=== PATIENT | female | born 1990 | race Caucasian/White ===

== ENCOUNTER 2016-09-14 14:43 | Outpatient (CLI) | payer BC | END 2016-09-14 14:44 | disposition home or self-care (01) | DX: M25.632 Stiffness of left wrist, not elsewhere classified (principal); M25.532 Pain in left wrist; M79.89 Other specified soft tissue disorders; R93.7 Abnormal findings on diagnostic imaging of other parts of musculoskeletal system ==

== ENCOUNTER 2016-09-30 12:45 | Outpatient (CLI) | payer BC | END 2016-09-30 12:46 | disposition home or self-care (01) | DX: M65.832 Other synovitis and tenosynovitis, left forearm (principal); M67.834 Other specified disorders of tendon, left wrist ==

== ENCOUNTER 2020-08-21 04:11 | Outpatient (CLI) | payer BC | END 2020-08-21 04:12 | disposition critical access hospital (66) | LOC: EMS 04:11 | PROVIDERS: ATTEND Surgery | DX: R42 Dizziness and giddiness (principal) | CPT/HCPCS: A0425; A0429 ==

== ENCOUNTER 2020-08-21 04:27 | Emergency (ER) | payer BC ==
--- NOTE | 2020-08-21 04:27 | ED Physician Documentation ---
History of Present Illness - Stated complaint Stated Complaint: DIARRHEA, DIZZY, FAINT - History obtained from History obtained from: Patient, EMS - History of Present Illness Timing: Enter time (03:00), Today Pain level max: 0 Pain level now: 0 Improved by: rest Worsened by: standing - Additonal information Additional information: BIBA. patient took bowel prep at 4 PM yesterday (approximately 12 hours COTTON WEIGHER) and had subsequent diarrhea c/w expected effect of the bowel prep. She says she has had one of the two bottles of the bowel prep and is scheduled for colonoscopy at 11 AM at [facility] and was to drink the other bottle later this morning. She says she went to bed last night feeling well except for the diarrhea, but woke at approximately 3 AM feeling lightheaded/dizzy with worsening of these symptoms when she tried to stand. EMS administered 500cc IV NS but patient continued to be symptomatic at rest and worse with standing. EMS notes that patient's heart rate was in the 70s when lying down, 110s with sitting, 120s with standing. Patient has had a total of 700cc IV NS COTTON WEIGHER. patient says she was to have the colonoscopy to investigate episodic diarrhea with abdominal cramping. Review of Systems Constitutional: denies: Fever, Chills, Sweats Cardiac: reports: Reviewed and negative Respiratory: reports: Reviewed and negative GI: reports: Diarrhea. denies: Abdominal Pain, Nausea, Vomiting, Bloody / black stool : denies: Dysuria, Frequency, Now E[facility] PD PAST MEDICAL HISTORY - Past Medical History Past Medical History: No - Past Surgical History Past Surgical History: No - Present Medications Home Medications: Ambulatory Orders Medication Instructions Recorded Confirmed No Known Home Medications 08/21/20 08/21/20 - Allergies Allergies/Adverse Reactions: Allergies Allergy/AdvReac Type Severity Reaction Status Date / Time No Known Drug Allergies Allergy Verified 08/21/20 04:40 - Living Situation Living Arrangement: reports: At home PD ED PE NORMAL - Vitals Vital signs reviewed: Yes - General General: Alert and oriented X 3, No acute distress, Well developed/nourished - HEENT HEENT: Moist mucous membranes - Neck Neck: Supple, no meningeal sign - Cardiac Cardiac: RRR, No murmur - Respiratory Respiratory: No respiratory distress, Clear bilaterally - Abdomen Abdomen: Normal bowel sounds, Soft, Non tender, Non distended Results - Vitals Vitals: Vital Signs - 24 hr 08/21/20 08/21/20 04:30 05:00 Temperature 36.6 C Heart Rate 77 75 Respiratory 18 16 Rate Blood Pressure 123/71 120/107 H O2 Saturation 100 100 Oxygen O2 Source Room air - Labs Labs: Laboratory Tests 08/21/20 08/21/20 04:44 04:44 WBC 8.7 RBC 4.30 Hgb 13.4 Hct 39.9 MCV 92.8 MCH 31.2 H MCHC 33.6 RDW 11.7 L Plt Count 222 MPV 9.4 Neut # (Auto) 5.0 Lymph # (Auto) 2.8 [place] # (Auto) 0.7 Eos # (Auto) 0.2 Baso # (Auto) 0.0 Absolute Nucleated RBC 0.00 Nucleated RBC % 0.0 Sodium 137 Potassium 3.4 L Chloride 105 Carbon Dioxide 24 Anion Gap 8.0 BUN 8 Creatinine 0.7 Estimated GFR (MDRD) 97 Glucose 120 H Calcium 8.6 Total Bilirubin 0.4 AST 16 ALT 12 Alkaline Phosphatase 61 Total Protein 6.8 Albumin 4.1 Globulin 2.7 Albumin/Globulin Ratio 1.5 Lipase 23 PD MEDICAL DECISION MAKING - ED course Complexity details: reviewed results, re-evaluated patient, considered differential, d/w patient ED course: unremarkable blood test results. She is given 1 liter NS in ED (total of 1700cc when combined with the 700cc given by EMS en route). After infusion of the 1 liter NS in ED, she reports feeling much improved and is able to stand and am bulate with minimal lightheadedness. She is comfortable with d/c home. I advised her to contact her GI doctor's office for further instruction regarding rescheduling the colonoscopy and I advised her to not finish the bowel prep Departure - Departure Disposition: Home, Self Care Clinical Impression: Diarrhea, Dehydration Condition: Good Instructions: ED Dehydration Follow-Up: ANTONIA VAZQUEZ ARNP [Primary Care Provider] -
[2020-08-21] MEDS ORDERED: SODIUM CHLORIDE 0.9% 1,000 ML IV STA (04:38)
[2020-08-21 05:12] LABS: BASOPHILS % (AUTO) 0.3 %; EOSINOPHILS # (AUTO) 0.2 10^3/uL (0.0-0.7); EOSINOPHILS % (AUTO) 1.7 %; HGB - HEMOGLOBIN 13.4 g/dL (12.0-16.0); LYMPHOCYTES # (AUTO) 2.8 10^3/uL (1.5-3.5); LYMPHOCYTES % (AUTO) 32.5 %; MEAN CORPUSCULAR HEMOGLOBIN 31.2 pg (27.0-31.0); MEAN CORPUSCULAR HGB CONC 33.6 g/dL (32.0-36.0); MEAN CORPUSCULAR VOLUME 92.8 fL (81.0-99.0); MEAN PLATELET VOLUME 9.4 fL (7.9-10.8); MONOCYTES # (AUTO) 0.7 10^3/uL (0.0-1.0); MONOCYTES % (AUTO) 7.5 %; NEUTROPHILS % (AUTO) 57.7 %; PLT - PLATELET COUNT 222 10^3/uL (130-450); RED CELL DISTRIBUTION WIDTH 11.7 % (12.0-15.0); WHITE BLOOD COUNT 8.7 x10^3/uL (4.8-10.8)
[2020-08-21 05:24] LABS: ALBUMIN 4.1 g/dL (3.2-5.5); ALBUMIN/GLOBULIN RATIO 1.5 (1.0-2.2); BILIRUBIN,TOTAL 0.4 mg/dL (0.2-1.0); CALCIUM 8.6 mg/dL (8.5-10.3); CREATININE 0.7 mg/dL (0.4-1.0); TOTAL PROTEIN 6.8 g/dL (6.7-8.2)
[2020-08-21 06:04] VITALS: BP 122/87
== END 2020-08-21 06:02 | disposition home or self-care (01) ==
LOC: EDUNIT# → ED 04:27
DX: R19.7 Diarrhea, unspecified (principal); E86.0 Dehydration
CPT/HCPCS: 36415; 80053; 83690; 85025; 96360; 99284

== ENCOUNTER 2020-11-07 07:00 | Outpatient (CLI) | payer BC ==
[2020-11-08 00:27] LABS: BACTERIAL VAGINOSIS DNA NEGATIVE (NEGATIVE); CANDIDA GLABRATA DNA NEGATIVE (NEGATIVE); CANDIDA GROUP DNA NEGATIVE (NEGATIVE); CANDIDA KRUSEI DNA NEGATIVE (NEGATIVE); TRICHOMONAS VAGINALIS DNA NEGATIVE (NEGATIVE)
== END 2020-11-07 23:59 | disposition home or self-care (01) ==
LOC: LAB 07:00
PROVIDERS: ATTEND Family Medicine
DX: N39.0 Urinary tract infection, site not specified (principal); N89.8 Other specified noninflammatory disorders of vagina
CPT/HCPCS: 87086; 87181; 87661; 87801

== ENCOUNTER 2020-11-09 01:53 | Emergency (ER) | payer BC ==
--- NOTE | 2020-11-09 02:03 | ED Physician Documentation ---
PD HPI FOCAL NEURO - Stated complaint Stated Complaint: NUMB L FACE, DIZZINESS, WEAKNESS - Chief complaint Chief Complaint: Neuro - History obtained from History obtained from: Patient - History of Present Illness Timing - onset: How many hours ago (1), Today Timing - details: Abrupt onset (She was seen for bladder infection 2 days ago and started on Bactrim with the urine culture still pending. She was feeling some nausea yesterday and then awoke from sleep tonight with feeling of lightheadedness, clammy, low temperature, nausea and general weakness. She noted some numbness on face.) Severity of deficit: Moderate Weakness: No: Face, Arm, Leg Numbness: Face (left side, associated with some headache.) Associated symptoms: Headache, Nausea / vomiting (earlier today and more when awoke this evening.) Baseline status: positive: A&OX3, ambulatory, indep Similar symptoms before: Diagnosis (had similar weakness and nausea once prior when prepping for colonoscopy and was dehdrated.) Recently seen: Clinic (Urgent Care for UTI symptoms and Rx Bactrim 2 days ago.) Review of Systems Constitutional: denies: Fever (noted her temp to be low at 94 by home ther mometer.) Eyes: reports: Decreased vision (left eye and has had some scotomata with headache over the past few weeks intermittently.), Photophobia Nose: denies: Rhinorrhea / runny nose, Congestion, Sinus pressure / pain Throat: denies: Sore throat Cardiac: denies: Palpitations Respiratory: denies: Dyspnea GI: reports: Nausea, Vomiting. denies: Abdominal Pain, Diarrhea Neurologic: reports: Generalized weakness, Numbness (noted some tingling left side of face; no symptoms in arms nor legs. No facial weakness, trouble speaking, nor confusion.), Headache (gets left sided headaches intermittently. Occasional when younger (onset late teens and into twenties). Has had then about 3-4 times monthly for half year or more, and more frequent (every few days) the past several weeks. Has seen PMD without any Rx given. Referring to ENT. Pt told to use Ibuprofen). denies: Focal weakness, Near syncope Endocrine: denies: Weight loss Immunocompromised: denies: Immunocompromised PD PAST MEDICAL HISTORY - Past Medical History Cardiovascular: None Respiratory: None Neuro: Migraines Endocrine/Autoimmune: None GI: None HEENT: None - Past Surgical History Past Surgical History: No - Present Medications Home Medications: Ambulatory Orders Medication Instructions Recorded Confirmed Norethindrone 11/09/20 Ondansetron Odt [Zofran] 4 mg TL Q6H PRN #10 tablet 11/09/20 Sumatriptan Succinate [Imitrex] 50 mg PO Q4H PRN #6 tablet 11/09/20 - Allergies Allergies/Adverse Reactions: Allergies Allergy/AdvReac Type Severity Reaction Status Date / Time No Known Drug Allergies Allergy Verified 08/21/20 04:40 PD ED PE NORMAL - Vitals Vital signs reviewed: Yes - General General: Alert and oriented X 3, No acute distress, Well developed/nourished - HEENT HEENT: PERRL, EOMI (some light sensitive left eye.), Ears normal - Neck Neck: Supple, no meningeal sign, No adenopathy - Cardiac Cardiac: RRR, No murmur - Respiratory Respiratory: Clear bilaterally - Abdomen Abdomen: Soft, Non tender - Back Back: No CVA TTP - Derm Derm: Normal color, Warm and dry - Extremities Extremities: No tenderness to palpate, Normal ROM s pain - Neuro Neuro: Alert and oriented X 3, turn supervisor 2-12 intact, No motor deficit, No sensory deficit (normal sensation to touch on face), Normal speech Eye Opening: Spontaneous Motor: Obeys Commands Verbal: Oriented GCS Score: 15 Results - Vitals Vitals: Vital Signs - 24 hr 11/09/20 01:55 Temperature 36.4 C L Heart Rate 95 Respiratory 20 Rate Blood Pressure 115/94 H O2 Saturation 99 Oxygen O2 Source Room air - Labs Labs: Laboratory Tests 11/09/20 11/09/20 11/09/20 02:50 02:50 02:50 WBC 8.3 RBC 4.40 Hgb 13.8 Hct 40.9 MCV 93.0 MCH 31.4 H MCHC 33.7 RDW 11.8 L Plt Count 230 MPV 9.0 Neut # (Auto) 4.9 Lymph # (Auto) 2.5 [place] # (Auto) 0.6 Eos # (Auto) 0.2 Baso # (Auto) 0.0 Absolute Nucleated RBC 0.00 Nucleated RBC % 0.0 Sodium 136 Potassium 3.7 Chloride 103 Carbon Dioxide 24 Anion Gap 9.0 BUN 13 Creatinine 0.7 Estimated GFR (MDRD) 97 Glucose 112 H Lactic Acid 1.4 Calcium 8.9 Magnesium 2.0 Total Bilirubin 0.4 AST 14 ALT 13 Alkaline Phosphatase 60 C-Reactive Protein < 1.0 Total Protein 7.3 Albumin 4.3 Globulin 3.0 Albumin/Globulin Ratio 1.4 Lipase 25 PD MEDICAL DECISION MAKING - ED course Complexity details: reviewed old records (urine culture showing e.coli but sensitivities are not resulted yet. ), reviewed results (no signs of sepsis. Lytes good. Given the chronic recurrences of headache, I did not see indication for urgent imaging. ), re-evaluated patient (given IV fluids and meds targeting nausea/migraine and feeling improved. ), considered differential (having nausea/weakness/low temp/some headache. Could be side effect of recent abx started 2 days ago. Consider early sepsis. Also having some elements c/w migraine (visual sensitive, nausea, facial numbness). ), d/w patient Departure - Departure Disposition: 01 Home, Self Care Clinical Impression: Nausea, Lightheadedness, Frequent headaches, Medication side effect Condition: Stable Record reviewed to determine appropriate education?: Yes Instructions: ED Headache Migraine, ED Nausea Vomiting Follow-Up: ANTONIA VAZQUEZ ARNP [Primary Care Provider] - Prescriptions: Sumatriptan Succinate [Imitrex] 50 mg PO Q4H PRN #6 tablet PRN Reason: Migraine Ondansetron Odt [Zofran] 4 mg TL Q6H PRN #10 tablet PRN Reason: Nausea / Vomiting Comments: Your urine culture is showing E. coli which is a common bacteria for bladder infections. The sensitivities are not resulted yet and likely will be later today. Your blood tests are good with a normal white count and other tests markers for sepsis are negative. I do not think your symptoms are related to worsening infection. You may have experience seeing side effects to the Bactrim with regard to nausea and not feeling well. If so we could change to a different antibiotic but it would be good to wait for the sensitivity report on your culture to know the best next antibiotic to choose. Call the walk-in clinic or your primary care back this afternoon to see if the urine culture sensitivities are resulted so they could know which antibiotic to change you to if you are still having symptoms with your Bactrim. Use ondansetron if needed for nausea. Regarding your headaches you have been having, I would suggest trying ondansetron along with sumatriptan which is a migraine particular medicine when you get the migraine type headaches. See if this helps some go away promptly. If so your primary care can continue prescribing those. If they do not help that well, your primary care can try other approaches or even potentially daily preventive medications for the headaches. They do sound migraine-like. Continue with referrals to ENT as planned to evaluate that way.
[2020-11-09] MEDS ORDERED: SODIUM CHLORIDE 0.9% 1,000 ML IV STA (02:34)
[2020-11-09] MEDS ORDERED: KETOROLAC 30 MG/ML VIAL IVP STA (02:34)
[2020-11-09] MEDS ORDERED: diphenhydrAMINE INJ 50 MG/ML VIAL IVP STA (02:34)
[2020-11-09] MEDS ORDERED: PROCHLORPERAZINE 10 MG/2 ML VIAL IVP STA (02:34)
[2020-11-09 02:58] LABS: BASOPHILS % (AUTO) 0.5 %; EOSINOPHILS # (AUTO) 0.2 10^3/uL (0.0-0.7); EOSINOPHILS % (AUTO) 2.2 %; HCT - HEMATOCRIT 40.9 % (37.0-47.0); HGB - HEMOGLOBIN 13.8 g/dL (12.0-16.0); LYMPHOCYTES # (AUTO) 2.5 10^3/uL (1.5-3.5); LYMPHOCYTES % (AUTO) 30.5 %; MEAN CORPUSCULAR HEMOGLOBIN 31.4 pg (27.0-31.0); MEAN CORPUSCULAR HGB CONC 33.7 g/dL (32.0-36.0); MONOCYTES # (AUTO) 0.6 10^3/uL (0.0-1.0); MONOCYTES % (AUTO) 7.5 %; NEUTROPHILS # (AUTO) 4.9 10^3/uL (1.5-6.6); NEUTROPHILS % (AUTO) 58.9 %; PLT - PLATELET COUNT 230 10^3/uL (130-450); RED CELL DISTRIBUTION WIDTH 11.8 % (12.0-15.0); WHITE BLOOD COUNT 8.3 x10^3/uL (4.8-10.8)
[2020-11-09 03:17] LABS: ALBUMIN 4.3 g/dL (3.2-5.5); ALBUMIN/GLOBULIN RATIO 1.4 (1.0-2.2); ALKALINE PHOSPHATASE 60 IU/L (42-121); ALT ALANINE AMINOTRANSFERASE 13 IU/L (10-60); AST ASPARTATE AMINOTRANSFERASE 14 IU/L (10-42); BILIRUBIN,TOTAL 0.4 mg/dL (0.2-1.0); BUN - BLOOD UREA NITROGEN 13 mg/dL (6-20); CALCIUM 8.9 mg/dL (8.5-10.3); CARBON DIOXIDE - CO2 24 mmol/L (21-32); CHLORIDE 103 mmol/L (101-111); CREATININE 0.7 mg/dL (0.4-1.0); GFR - MDRD 97 (>89); GLUCOSE 112 mg/dL (70-100); LIPASE 25 U/L (22-51); POTASSIUM 3.7 mmol/L (3.5-5.0); SODIUM 136 mmol/L (135-145); TOTAL PROTEIN 7.3 g/dL (6.7-8.2)
[2020-11-09 03:24] LABS: CRP - C-REACTIVE PROTEIN < 1.0 mg/dL (0-1.0)
[2020-11-09] MEDS ORDERED: ONDANSETRON ODT 4 MG Prepack 2 TL PRN (03:52)
[2020-11-09 04:16] VITALS: BP 120/76
--- OUTSIDE RECORDS SUMMARY | 2020-11-15 00:20 | EXTERNAL MEDICAL SUMMARY RPT | Continuity of Care Document ---
:1990 Demographics Phone Unavailable Preferred Language [place] Marital Status Unknown Church Affiliation Unknown Race Unknown Ethnic Group Unknown Author Organization [place] Address [address] [id number] Phone Care Team Providers Name Role Phone Brown Unavailable Unavailable Procedures date description facility [id number] [facility] Vital Signs date measurement value source 20200926 BMI 27.3 kg/m2 20200926 BP_diastolic 80 mm[Hg] 63622398 BP_systolic 120 mm[Hg] 11115409 heart_rate 70 /min 20200926 height_metric 160.02 cm [id number] height_standard 63 in [id number] temperature_metric 37.11 C [id number] temperature_standard 98.8 F [id number] weight_metric 31.68 kg [id number] weight_standard 69.85 lb Social History date description facility [id number]
== END 2020-11-09 04:16 | disposition home or self-care (01) ==
LOC: ED 01:53
DX: R42 Dizziness and giddiness (principal); R11.0 Nausea; T36.8X5A Adverse effect of other systemic antibiotics, initial encounter; R51.9 Headache, unspecified
CPT/HCPCS: 36415; 80053; 83605; 83690; 83735; 85025; 86140; 96361; 96374; 96375; 99283; 99284; J1200

== ENCOUNTER 2024-03-13 08:00 | Outpatient (CLI) | payer BC | END 2024-03-13 23:59 | disposition home or self-care (01) | LOC: LAB.N 08:00 | PROVIDERS: ATTEND Physician Assistant Medical | DX: N39.0 Urinary tract infection, site not specified (principal) | CPT/HCPCS: 87077; 87086; 87181 ==